=== PATIENT | male | born 1945 | race Caucasian/White ===

== ENCOUNTER 2025-01-31 21:24 | Emergency (ER) | payer MEDICARE, SELFPAY ==
[2025-01-31 21:26] VITALS: BP 125/66; PULSE 75; RESP 16; TEMP 36.3; O2SAT 94; BMI 44.3
--- NOTE | 2025-01-31 22:34 | EDS_ITS ---
HPI History of Present Illness Chief Complaint: Fall Narrative Narrative: Patient is a 71-year-old male with a past medical history of CVA, hypertension who presents to the emergency department the chief complaint of left thigh and hip pain. Patient states that earlier this evening he was up on a stepstool doing something I was not supposed to be doing he states that he lost his balance and fell. He states that he was unable to get up and therefore EMS was called to have him brought here further evaluation management. 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 Patient states that he is not on any blood thinning medications and states that he did not hit his head he did not pass out did not lose consciousness. Patient denies any pain anywhere else. [facility] Medical History Hypertension History of femur fracture Stroke Stroke Home Medications ?Medication ?Instructions ?Recorded ?Last Taken ?Type clopidogrel 75 mg tablet (Plavix) 75 mg PO DAILY 01/31 Unknown History metoprolol tartrate 25 mg tablet 25 mg PO BID 01/31/25 Unknown History pantoprazole 40 mg tablet,delayed 40 mg PO DAILY 01/31 Unknown History release pioglitazone 15 mg tablet 40 mg PO DAILY 01/31/25 Unkn own History simvastatin 40 mg tablet 40 mg PO DAILY 01/31/25 Unkn own History sitagliptin phosphate 50 1 tab PO BID 01/31/25 Unknow n History mg-metformin 1,000 mg tablet (Scottumeciarra) Allergy/AdvReac Type Severity Reaction Status Date / Time No Known Allergies Allergy Verified 01/31/25 21:26 Surgical History History of hip surgery History of back surgery Social History Smoking Status: Never smoker ROS ROS ED ROS Narrative Constitutional: Denies headache, lightness, dizziness, fevers, chills Cardiovascular: Denies chest pain or palpitations Respiratory: Denies coughing wheezing shortness of breath Abdomen: Denies abdominal pain nausea vomit diarrhea : Denies urinary symptoms Neurological: Denies numbness, weakness, tingling Musculoskeletal: Complains of left hip and thigh pain as noted above Skin: Denies rashes or lesions EXAM Physical Exam Narrative Exam Narrative: General: Patient lying in bed did appear to be uncomfortable secondary to his left thigh and hip pain Head: Atraumatic, normocephalic Eyes: PERRL bilaterally, EOMI bilaterally, no conjunctival injection noted Neck: Soft, supple, trachea midline Cardiovascular: Regular rate and rhythm no murmurs gallops rubs noted Respiratory: Clear to auscultation bilaterally Abdomen: Soft, nondistended, nontender to palpation Musculoskeletal: Patient has tenderness palpation over the left proximal thigh and into the left hip. All of the bony prominences palpated joints taken through full range of motion no pain elicited Extremities: DP pulses +2/4 in the bilateral lower extremities, +5/5 strength noted in the bilateral upper extremities and the right lower extremity, left lower extremity is limited due to pain Neurological: Patient follow commands and that he was at [facility] year is 2024 Skin: Warm, dry, intact no rashes or lesions noted Const Vital Signs: 01/31/25 21:26 01/31/25 21:29 01/31/25 23:25 Temperature 97.4 F L Temperature Source Oral Pulse Rate 75 85 Respiratory Rate 16 18 Respiratory Effort Normal Respiratory Depth Normal Respiratory Pattern Normal Blood Pressure 125/66 H Blood Pressure Mean 85 Pulse Ox 94 96 Oxygen Delivery Method Room Air Room Air Room Air MDM MDM MDM Narrative Medical decision making narrative: Patient is a 71-year-old male who presented to the emerged part with a chief complaint of left hip and thigh pain after a fall off a stepstool. On the differential diagnose includes but not limited to periprosthetic hip fracture, femur fracture. Once workup is obtained reviewed he will be reevaluated. Patient will be given morphine and Zofran. Patient CBC was significant for leukocytosis of 14,000 which is likely reactive, hemoglobin 15, plate count was noted be 199. Patient sodium normal 136, potassium normal 4.5, creatinine was 91.23. Patient's x-ray of his pelvis showed bilateral total hip replacements noted with femoral components partially visualized no acute fracture or dislocation. Patient's femur x-ray showed a periprosthetic femur fracture. Patient states that Dr. Gonzalez from [facility] orthopedics placed the hip replacement with extended stem on that side. I reached out to [facility] as he followed with Dr. Mathis in the past for his right hip replacement. Discussed case with on-call physician Dr. Leal and he said transfer the patient. Will discuss case with [facility]. Discussed case with ER physician Dr. Harley who will accept the patient pending Ortho accepting the patient. Discussed case with on-call orthopedic surgeon Dr. Botello who accept the patient for admission. Patient be given another dose of morphine and Zofran. I updated the patient he is agreeable this plan all question concerns answered at bedside. Patient ultimately will be transferred to [facility]. Lab Data Labs: Laboratory Results - last 24 hr 01/31/25 23:41 WBC 14.6 H RBC 4.99 Hgb 15.1 Hct 46.1 MCV 92.4 MCH 30.3 MCHC 32.8 RDW Std Deviation 42.3 RDW Coeff of Alberto 12.5 Plt Count 199 MPV 11.1 Immature Gran % (Auto) 2.300 H Neut % (Auto) 85.7 H Lymph % (Auto) 5.6 L [place] % (Auto) 5.6 Eos % (Auto) 0.3 Baso % (Auto) 0.5 Absolute Neuts (auto) 12.5 H Absolute Lymphs (auto) 0.81 L Nucleated RBC % 0 Sodium 136 Potassium 4.5 Chloride 103 Carbon Dioxide 21.0 Anion Gap 12 BUN 24 H Creatinine 1.23 H Estim Creat Clear Calc 67.81 Est GFR (MDRD) Non-Af 60 BUN/Creatinine Ratio 19.3 Glucose 140 H Calcium 8.7 Radiography Diagnostic Testing: Clinical Impression(s) from Imaging Studies Pelvis X-Ray 01/31/25 23:40 IMPRESSION: Bilateral total hip replacements noted with femoral components partially visualized. No acute fracture or dislocation identified. Reading Location: [facility] Femur X-Ray 02/01/25 00:00 IMPRESSION: Status post left hip replacement with femoral prosthesis tip extending to the lower mid femoral diaphysis. Associated lateral plate with multiple cerclage wires. Proximal femoral callus formation, buttressing, and heterotopic bone formation. There is an acute obliquely oriented comminuted appearing fracture of the distal diaphysis and metadiaphysis at the lower portion of the femoral hardware with mild resulting angulation medially. Recommend orthopedic consult. Reading Location: [facility] Discharge Plan Triage Chief Complaint: Fall ED Provider: Chandler Cash Dx/Rx/DC Orders Clinical Impression: Ju-prosthetic fracture of femur at tip of prosthesis, Fall Prescriptions: No Action pantoprazole 40 mg tablet,delayed release (DR/EC) 40 mg PO DAILY metoprolol tartrate 25 mg tablet 25 mg PO BID clopidogrel [Plavix] 75 mg tablet 75 mg PO DAILY simvastatin 40 mg tablet 40 mg PO DAILY pioglitazone 15 mg tablet 40 mg PO DAILY Janumet 50-1,000 mg tablet 1 tab PO BID Patient Comments: not sure about dose Primary Care Provider: Jaciel Mathis Referrals: Jaciel Mathis MD [Primary Care Provider] - Print Language: [place] Disposition Disposition: DC/Tx to Another Type of HCF
[2025-01-31] MEDS: Ondansetron 4 MG/2 ML Vial IV (23:05)
[2025-01-31] MEDS: 0.9% Normal Saline (1000mL) 1,000 ML 999 ML IV (23:05)
[2025-01-31] MEDS: Morphine 4 MG/ML Syringe IV (23:05)
[2025-01-31 23:25] VITALS: PULSE 85; RESP 18; O2SAT 96
--- NOTE | 2025-01-31 23:40 | RAD_ITS ---
PROCEDURE: PELVIS 1 OR 2 VIEWS REASON FOR EXAM: Fall, pain TECHNIQUE: 1 view(s) of the pelvis. COMPARISON: None FINDINGS: Bilateral total hip replacements noted with femoral components partially visualized. No acute fracture or dislocation identified. Lower lumbar and partially imaged stimulator device. SI joints and pubic symphysis appear within limits. RAD/Pelvis 1 or 2 Views IMPRESSION: Bilateral total hip replacements noted with femoral components partially visual ized. No acute fracture or dislocation identified. Reading Location: [id number]
[2025-01-31 23:57] LABS: Absolute Lymphocyte Count 0.81 X10^3/uL (0.83-4.51); Absolute Neutrophil Count 12.5 X10^3/uL (2.0-7.7); Basophil# 0.07 X10^3/uL; Basophil% 0.5 % (0-1); Eosinophil# 0.04 X10^3/uL; Eosinophils% 0.3 % (0-5); Hematocrit 46.1 % (40-54); Hemoglobin 15.1 g/dL (13.0-16.5); Lymphocyte # 0.81 X10^3/ul (0.83-4.51); Lymphocyte % 5.6 % (19-41); Mean Corp Hgb Conc 32.8 g/dL (32-36); Mean Corpuscular Hgb 30.3 pg (27.0-32.0); Mean Corpuscular Volume 92.4 fL (80-94); Mean Platelet Vol. 11.1 fl (6.2-12.0); Monocyte# 0.82 X10^3/uL; Monocyte% 5.6 % (0-10); NRBC Flagged by Analyzer 0 % (0-5); Neutrophil # 12.52 X10^3/uL (2.7-7.7); Neutrophil % 85.7 % (47-70); Platelet Count 199 K/mm3 (150-450); RBC Distribution Width CV 12.5 % (11.6-14.6); RBC Distribution Width SD 42.3 fl (35.1-43.9); Red Blood Count 4.99 M/mm3 (4.6-6.2); White Blood Count 14.6 K/mm3 (4.4-11.0)
--- NOTE | 2025-02-01 | RAD_ITS ---
PROCEDURE: FEMUR MIN 2 VIEWS REASON FOR EXAM: Fall, left leg pain TECHNIQUE: 2 view(s) of left femur, 6 total images COMPARISON: None available. FINDINGS: LEFT FEMUR: Status post left hip replacement with femoral prosthesis tip extending to the lower mid femoral diaphysis. Associated lateral plate with multiple cerclage wires. Proximal femoral callus formation, buttressing, and heterotopic bone formation. There is an acute obliquely oriented comminuted appearing fracture of the distal diaphysis and metadiaphysis at the lower portion of the femoral hardware with mild resulting angulation medially. Vascular calcifications. Enthesophyte formation at the quadriceps and patellar sides of the patella RAD/Femur Min 2 Views IMPRESSION: Status post left hip replacement with femoral prosthesis tip extending to the l ower mid femoral diaphysis. Associated lateral plate with multiple cerclage wires. Proximal femoral callus formation, buttress ing, and heterotopic bone formation. There is an acute obliquely oriented comminuted appearing fracture of the dista l diaphysis and metadiaphysis at the lower portion of the femoral hardware with mild resulting angulation medially. Recommend ort hopedic consult. Reading Location: [id number]
[2025-02-01 00:08] LABS: Anion Gap 12 (5-15); BUN 24 mg/dL (4-19); BUN/Creat Ratio 19.3 RATIO (10-20); Calcium,Total 8.7 mg/dL (7.6-11.0); Chloride 103 mmol/L (98-108); Creatinine, Serum 1.23 mg/dL (0.70-1.20); EST Glomerular Filtration Rate 60 (>60); Estimated Creatinine Clearance 67.81 ml/min (50-250); Glucose 140 mg/dL (70-99); Potassium 4.5 mmol/L (3.3-5.1); Sodium Level 136 mmol/L (133-145)
[2025-02-01 01:00] VITALS: BP 145/89; PULSE 96; RESP 18; O2SAT 93
--- NOTE | 2025-02-01 01:12 | ED.RN ---
PT ACCEPTED AT [facility] DR. CADENA
[2025-02-01] MEDS: Ondansetron 4 MG/2 ML Vial IV (01:37)
[2025-02-01] MEDS: Morphine 4 MG/ML Syringe IV (01:37)
[2025-02-01 02:04] VITALS: BP 145/89; PULSE 90; RESP 19; TEMP 36.6; O2SAT 98
== END 2025-02-01 02:44 | disposition other institution (70) ==
PROVIDERS: Emergency Provider Emergency Medicine; PCP Family Medicine; Visit Provider Emergency Medicine
DX: S72.92XA Unspecified fracture of left femur, initial encounter for closed fracture (principal); M97.02XA Periprosthetic fracture around internal prosthetic left hip joint, initial encounter; I10 Essential (primary) hypertension; Z96.643 Presence of artificial hip joint, bilateral; Z86.73 Personal history of transient ischemic attack (TIA), and cerebral infarction without residual deficits; W11.XXXA Fall on and from ladder, initial encounter
CPT/HCPCS: 36415; 72170; 73552; 80048; 85025; 96361; 96374; 96375; 96376; 99285; A4216; J2405